=== PATIENT | male | born 1950 | race Caucasian/White ===

== ENCOUNTER → 2017-02-08 | Day surgery (SDC) | payer MEDICARE, MEDICAID | LOC: MSO 10:09 | DX: R13.10 Dysphagia, unspecified (principal); K22.2 Esophageal obstruction; K21.0 Gastro-esophageal reflux disease with esophagitis; K21.9 Gastro-esophageal reflux disease without esophagitis | CPT/HCPCS: 00740; A4649; J7120 ==